=== PATIENT | female | born 1985 | race Caucasian/White ===

== ENCOUNTER 2019-06-25 07:50 | Emergency (ER) | payer OTHER, MEDICAID ==
[~2019-06-25] VITALS: Ht 175.3 cm; Wt 77.1 kg
[2019-06-25 07:54] VITALS: BP 116/76
[2019-06-25] MEDS ORDERED: IBUPROFEN 400 MG TABLET ONE ×2 (08:39→08:43)
[2019-06-25] MEDS: IBUPROFEN 400 MG TABLET PO ONE (08:42)
== END 2019-06-25 09:43 | disposition home or self-care (01) ==
LOC: ER 07:52
DX: S60.942A Unspecified superficial injury of right middle finger, initial encounter (principal); W23.0XXA Caught, crushed, jammed, or pinched between moving objects, initial encounter; Y93.89 Activity, other specified; Y92.89 Other specified places as the place of occurrence of the external cause; Y99.0 Civilian activity done for income or pay
CPT/HCPCS: 73130-TC